=== PATIENT | male | born 1990 | race Two or more races ===

== ENCOUNTER 2021-04-17 11:58 | Emergency (ER) | payer SELFPAY ==
[~2021-04-17] VITALS: Ht 167.6 cm; Wt 104.3 kg
[2021-04-17 12:15] VITALS: BP 127/88
[2021-04-17] MEDS ORDERED: ACETAMINOPHEN 500 MG TAB PO ONE (13:15)
[2021-04-17] MEDS ORDERED: TETANUS-DIPTH-ACEL PERTUSSIS 0.5ML SYR Tdap IM ONE (13:30)
== END 2021-04-17 13:30 | disposition home or self-care (01) ==
LOC: ER 11:58
DX: S01.01XA Laceration without foreign body of scalp, initial encounter (principal); W22.8XXA Striking against or struck by other objects, initial encounter; Y93.89 Activity, other specified; Y92.89 Other specified places as the place of occurrence of the external cause; Y99.8 Other external cause status
CPT/HCPCS: 12002; 90471; 90715